=== PATIENT | male | born 1950 | race Caucasian/White ===

== ENCOUNTER 2019-10-16 07:38 | Day surgery (SDC) | payer MEDICARE, OTHER ==
[~2019-10-16] VITALS: Ht 172.7 cm; Wt 96.1 kg
[2019-10-16] VITALS (8 sets, daily range): BP systolic 104–139; BP diastolic 65–85
[~2019-10-16 07:38] MED LIST: CHLO25TA2 PO; CLOP75TA33 PO; DOXA2TAB46 PO; GLIM4TAB7 PO; INSU100V36 SQ; LANTUS SQ; LISI-644 PO; NADO80TA PO; NITR0.4T51 SL; OMEP40CA13 PO; PRAV80TA3 PO
[2019-10-16] MEDS ORDERED: normal saline 1,000 ML IV SCH (08:00)
[2019-10-16] MEDS ORDERED: diphenhydrAMINE 25mg capsule PO PRN (08:00)
[2019-10-16] MEDS ORDERED: PANT40TA4 PO (08:25)
[2019-10-16] MEDS ORDERED: METO-411 PO (08:25)
[2019-10-16] MEDS ORDERED: CANA300T PO (08:25)
[2019-10-16] MEDS ORDERED: GABA600T13 PO (08:25)
[2019-10-16] MEDS ORDERED: DULA1.5P SQ (08:25)
[2019-10-16] MEDS ORDERED: ROSU40TA PO (08:25)
[2019-10-16] MEDS ORDERED: CHLO25TA10 PO (08:25)
[2019-10-16 09:12] LABS: BASOPHILS # (AUTO) 0.1 X10'3 (0-0.2); EOSINOPHILS # (AUTO) 0.1 X10'3 (0-0.9); EOSINOPHILS % (AUTO) 1.6 % (0-6); HEMATOCRIT 43.4 % (42.0-52.0); HEMOGLOBIN 14.7 g/dl (14.0-17.9); LYMPHOCYTES # (AUTO) 1.5 X10'3 (1.1-4.8); LYMPHOCYTES % (AUTO) 29.9 % (21-51); MEAN CORPUSCULAR HEMOGLOBIN 31.4 PG (27.0-31.0); MEAN CORPUSCULAR VOLUME 92.3 FL (78-98); MEAN PLATELET VOLUME 8.2 FL (7.4-10.4); MONOCYTES # (AUTO) 0.3 X10'3 (0-0.9); MONOCYTES % (AUTO) 6.5 % (2-12); NEUTROPHILS # (AUTO) 3.2 X10'3 (1.8-7.7); PLATELET COUNT 182 X10'3 (140-440); RED CELL DISTRIBUTION WIDTH 13.8 % (11.5-14.5); WHITE BLOOD COUNT 5.2 X10'3 (4.5-11.0)
[2019-10-16] MEDS ORDERED: iohexol 350 MG/ML 50ML vial IV ONE (09:58)
[2019-10-16] MEDS ORDERED: fentaNYL/PF 50MCG/1 ML 2ML syringe ONE (09:58)
[2019-10-16] MEDS ORDERED: LIDOcaine 1% (10mg/ml)w/preservative injection 20ml MDV ONE (09:58)
[2019-10-16] MEDS ORDERED: midazolam 2 mg/2 ml injection ONE (09:58)
[2019-10-16] MEDS ORDERED: iohexol 350MG/ML 100ml bottle IV ONE ×2 (09:58→10:47)
[2019-10-16 10:03] LABS: ALBUMIN 3.8 G/DL (3.4-5.0); ANION GAP 7 (8-16); BLOOD UREA NITROGEN 34 MG/DL (7-18); BUN/CREATININE RATIO 31.5 (5.4-32.0); CALCIUM 9.8 MG/DL (8.5-10.1); CHLORIDE 104 MMOL/L (99-107); CREATININE 1.08 MG/DL (0.60-1.10); GLUCOSE 180 MG/DL (70-104); MAGNESIUM 2.2 MG/DL (1.5-2.4); POTASSIUM 4.2 MMOL/L (3.5-5.1); SODIUM 140 MMOL/L (135-145); TOTAL CARBON DIOXIDE 29.1 MMOL/L (24-32); eGFR 68 ML/MIN
[2019-10-16] MEDS ORDERED: heparin 1,000unit/ml 10ml vial 10 ML ONE (10:37)
[2019-10-16] MEDS ORDERED: clopidogrel 300mg tablet ONE (12:00)
[2019-10-16] MEDS ORDERED: ondansetron/PF 4mg/2ml inj IV PRN (12:25)
[2019-10-16] MEDS ORDERED: OXAZEpam 15mg capsule PO PRN (12:25)
[2019-10-16] MEDS ORDERED: HYDROcodone/acetaminophen 5mg/325mg tablet PO PRN (12:25)
[2019-10-16] MEDS ORDERED: proCHLORperazine 10 MG/2 ml inj IV PRN (12:25)
[2019-10-16] MEDS ORDERED: normal saline 1000ml 1,000 ML IV SCH (12:25)
[2019-10-16] MEDS ORDERED: HYDROcodone/acetaminophen 10/325mg tab PO PRN (12:25)
== END 2019-10-16 15:30 | disposition home or self-care (01) ==
LOC: SSTAY O 07:38
PROVIDERS: ATTEND Internal Medicine Cardiovascular Disease
DX: R94.39 Abnormal result of other cardiovascular function study (principal); R07.9 Chest pain, unspecified; I25.10 Atherosclerotic heart disease of native coronary artery without angina pectoris; I25.82 Chronic total occlusion of coronary artery; E11.8 Type 2 diabetes mellitus with unspecified complications; I10 Essential (primary) hypertension; E78.5 Hyperlipidemia, unspecified; G47.30 Sleep apnea, unspecified
CPT/HCPCS: 36415; 80048; 82948; 83735; 85025; 85610; 93005; 93458; 93571; 99152; 99153; C1725; C1751; C1760; C1769; C1874; C1892; C1894; C9600; J1644; J2001; J2250; J3010; J7030; Q0163; Q9967; A4620; A6258

== ENCOUNTER 2020-07-17 20:29 | Emergency (ER) | payer MEDICARE, OTHER ==
[~2020-07-17] VITALS: Ht 172.7 cm; Wt 95.5 kg
[~2020-07-17 20:29] MED LIST changes: +CANA300T PO; +CHLO25TA10 PO; +DULA1.5P SQ; +GABA600T13 PO; -INSU100V36 SQ; -LANTUS SQ; +METO-411 PO; -NADO80TA PO; -OMEP40CA13 PO; +PANT40TA54 PO; -PRAV80TA3 PO; +ROSU40TA PO
[2020-07-17 20:32] VITALS: BP 116/64
[2020-07-17] MEDS ORDERED: TETanus/Pertussis (Acell)/Diphther VAC/PF (Tdap-Adult) 0.5ml syringe IMVAC ONE (23:25)
[2020-07-17] MEDS ORDERED: LIDOcaine 1% W/epiNEPHrine 1:200,000 10ml vial IJ ONE (23:25)
[2020-07-17] MEDS ORDERED: CEPH-585 PO (23:59)
== END 2020-07-18 00:11 | disposition home or self-care (01) ==
LOC: ER 20:30
DX: S60.852A Superficial foreign body of left wrist, initial encounter (principal); I25.10 Atherosclerotic heart disease of native coronary artery without angina pectoris; I10 Essential (primary) hypertension; I25.2 Old myocardial infarction; E11.9 Type 2 diabetes mellitus without complications; Z86.69 Personal history of other diseases of the nervous system and sense organs; Z72.89 Other problems related to lifestyle; Z98.890 Other specified postprocedural states; Z79.899 Other long term (current) drug therapy; X58.XXXA Exposure to other specified factors, initial encounter; Y93.89 Activity, other specified; Y92.89 Other specified places as the place of occurrence of the external cause; Y99.8 Other external cause status
CPT/HCPCS: 10120; 90471; 90715; 99285